=== PATIENT | female | born 1995 | race Caucasian/White ===

== ENCOUNTER 2018-10-25 20:38 | Emergency (ER) | payer OTHER ==
[2018-10-25] MEDS: KETOROLAC 60 MG INJ IM (23:22)
[2018-10-25] MEDS: LIDOCAINE/MYLANTA 40 ML BTL PO (23:22)
== END 2018-10-26 00:11 | disposition home or self-care (01) ==
LOC: E/R 20:38
DX: R07.2 Precordial pain (principal)
CPT/HCPCS: 81025; 93005; 96372; 99284-25